=== PATIENT | male | born 1975 | race African-American/Black ===

== ENCOUNTER → 2016-09-08 | Outpatient (CLI) | payer OTHER ==
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
== END ==
LOC: IMA 10:37
DX: Z02.89 Encounter for other administrative examinations (principal)